=== PATIENT | male | born 1995 | race African-American/Black ===

== ENCOUNTER 2023-01-05 05:48 | Emergency (ER) | payer OTHER ==
[2023-01-05 06:04] VITALS: BP 117/84; PULSE 72; RESP 18; TEMP 98.1; BMI 25.1
== END 2023-01-05 06:32 | disposition home or self-care (01) ==
LOC: JER 05:48
DX: J02.9 Acute pharyngitis, unspecified (principal); R51.9 Headache, unspecified; R68.83 Chills (without fever); Z20.822 Contact with and (suspected) exposure to COVID-19
CPT/HCPCS: 0241U-QW; 99283-25